=== PATIENT | male | born 1995 | race Native Hawaiian/Other Pacific Islander ===

== ENCOUNTER 2022-01-07 16:59 | Emergency (ER) | payer BC ==
[~2022-01-07] VITALS: Ht 177.8 cm; Wt 77.1 kg
[2022-01-07 16:59] VITALS: TEMP 96.5
[2022-01-07 17:27] LABS: PLATELET COUNT 211 K/uL (142-355)
[2022-01-07 17:32] LABS: POTASSIUM 3.3 mmol/L (3.6-5.2)
[2022-01-07 17:36] LABS: PARTIAL THROMBOPLASTIN TIME 23.6 SECONDS (24.5-33.6)
[2022-01-07 18:20] VITALS: BP 148/80
== END 2022-01-07 19:04 | disposition short-term general hospital (02) ==
LOC: ED 16:59
PROVIDERS: Emergency Medicine
DX: S63.280A Dislocation of proximal interphalangeal joint of right index finger, initial encounter (principal); S63.242A Subluxation of distal interphalangeal joint of right middle finger, initial encounter; S68.620A Partial traumatic transphalangeal amputation of right index finger, initial encounter; S68.622A Partial traumatic transphalangeal amputation of right middle finger, initial encounter; S61.302A Unspecified open wound of right middle finger with damage to nail, initial encounter; S61.111A Laceration without foreign body of right thumb with damage to nail, initial encounter; Z11.52 Encounter for screening for COVID-19; W31.89XA Contact with other specified machinery, initial encounter; Y92.89 Other specified places as the place of occurrence of the external cause
CPT/HCPCS: 36415; 80053; 85027; 85610; 85730; 87635; 90471; 90715; 96360; 96361; 96365; 96375; 96376; 99284; J1170; J2175; J2270; J2405; U0003